=== PATIENT | female | born 1990 | race Caucasian/White ===

== ENCOUNTER → 2016-08-13 | Outpatient (CLI) | payer MEDICAID ==
[~2016-08-13] MED LIST: DOCU-30 PO; FERR324T8 PO; FLUO20CA19 PO; IBUP-1222 PO; LABE100T3 PO; OXYC-302 PO; PREN-1 PO
[2016-08-13 14:47] LABS: HEMOGLOBIN 14.4 g/dL (11.7-16.4)
[2016-08-13 14:51] LABS: PATH.CAST-FLAG NOT PRESENT; SPERM-FLAG NOT PRESENT; SRC-FLAG NOT PRESENT; XTAL-FLAG NOT PRESENT; YLC-FLAG NOT PRESENT
[2016-08-13 14:56] LABS: ASPARTATE AMINO TRANSFERASE 16 U/L (15-37); BLOOD UREA NITROGEN 13 mg/dL (7-18)
== END | disposition home or self-care (01) ==
LOC: STAR 13:37
PROVIDERS: ATTEND Obstetrics & Gynecology
DX: Z01.818 Encounter for other preprocedural examination (principal); O70.9 Perineal laceration during delivery, unspecified; Z3A.00 Weeks of gestation of pregnancy not specified
CPT/HCPCS: 36415; 80053; 81001; 84703; 85025; 87086

== ENCOUNTER 2016-08-20 11:45 | Day surgery (SDC) | payer MEDICAID ==
[~2016-08-20] VITALS: Ht 157.5 cm; Wt 57.0 kg
[2016-08-20] MEDS ORDERED: LACTATED RINGERS 1,000 ML IV SCH (12:03)
[2016-08-20 12:40] VITALS: BP 113/75
[2016-08-20 12:50] LABS: HCG UR OBC PASS
[2016-08-20] MEDS ORDERED: FENTANYL PF 100 MCG/2ML ONE (13:46)
[2016-08-20] MEDS ORDERED: BUPIVACAINE/PF-EPI 0.25% 1:200K ONE (13:47)
[2016-08-20] MEDS ORDERED: PROPOFOL 10 MG/ML, 20ML ONE (13:57)
[2016-08-20] MEDS ORDERED: ONDANSETRON 2MG/ML, 2ML ONE (13:57)
[2016-08-20] MEDS ORDERED: METOCLOPRAMIDE 5 MG/ML, 2ML ONE (13:57)
[2016-08-20] MEDS ORDERED: CEFAZOLIN 1,000 MG ONE (13:57)
[2016-08-20] MEDS ORDERED: DEXAMETHASONE 4 MG/ML, 1ML ONE ×2 (13:57)
[2016-08-20] MEDS ORDERED: OXYcodone 5 MG/5 ML ORAL.SOL UDC PO PRN (14:30)
[2016-08-20] MEDS ORDERED: HYDROmorphone 1 MG/ML, 1ML IV PRN (14:30)
[2016-08-20] MEDS ORDERED: ONDANSETRON 2MG/ML, 2ML IVPush PRN (14:30)
[2016-08-20] MEDS ORDERED: FENTANYL PF 100 MCG/2ML IV PRN (14:30)
[2016-08-20] MEDS ORDERED: THROMBIN 5,000 UNIT VIAL TP ONE (14:32)
[2016-08-20] MEDS ORDERED: KETOROLAC 30 MG/1 ML ONE (14:58)
[2016-08-20] MEDS ORDERED: KETOROLAC 30 MG/1 ML IVPush STA (14:58)
[2016-08-20] MEDS ORDERED: HYDROcodone/APAP 7.5-325MG/15ML UDC ONE (15:59)
== END 2016-08-20 16:30 | disposition home or self-care (01) ==
LOC: OUT 11:45
PROVIDERS: ATTEND Obstetrics & Gynecology
DX: T81.89XA Other complications of procedures, not elsewhere classified, initial encounter (principal); L08.89 Other specified local infections of the skin and subcutaneous tissue; Z88.3 Allergy status to other anti-infective agents; Z88.6 Allergy status to analgesic agent; N28.1 Cyst of kidney, acquired; F32.9 Major depressive disorder, single episode, unspecified; Z90.5 Acquired absence of kidney; Y83.8 Other surgical procedures as the cause of abnormal reaction of the patient, or of later complication, without mention of misadventure at the time of the procedure
CPT/HCPCS: 11423; 12042; 36415; 81025; 86850; 86870; 86900; 86902; 86922; 88304; J0690; J1100; J1885; J2405; J2704; J2765; J3010; J7120; 86923

== ENCOUNTER 2016-08-23 21:40 | Emergency (ER) | payer MEDICAID ==
[~2016-08-23] VITALS: Ht 162.6 cm; Wt 78.2 kg
[2016-08-23 21:48] VITALS: BP 118/64
[2016-08-23 22:56] LABS: BLOOD UREA NITROGEN 16 mg/dL (7-18)
== END 2016-08-23 23:47 | disposition home or self-care (01) ==
LOC: ED 23:35
DX: R10.9 Unspecified abdominal pain (principal); Z88.1 Allergy status to other antibiotic agents; Z88.5 Allergy status to narcotic agent
CPT/HCPCS: 36415; 72192; 80048; 82040; 85025; 99285